=== PATIENT | male | born 1975 | race Caucasian/White ===

== ENCOUNTER → 2023-08-26 | Outpatient (CLI) | payer OTHER, SELFPAY ==
--- NOTE | 2023-08-26 14:55 | VDLE_ITS ---
Reason For Study: LLE Pain RIGHT LEFT CFV is compressible, spontaneous, phasic, GSV is normal. competent and demonstrates normal CFV is compressible, spontaneous, phasic, augmentation. competent, and demonstrates normal Procedure augmentation. This is a venous duplex using B-mode, color FV is compressible, spontaneous, phasic, flow and spectral Doppler. competent and demonstrates normal Exam performed in department. augmentation. The exam was diagnostic. POP V is compressible, spontaneous, phasic, A preliminary report was called and/or faxed competent and demonstrates normal to Violette Craig / Dr. Leos. augmentation. T/P Trunk is compressible. PTV is compressible. LT PerV is compressible. Non vascularized anechoic area noted in Lt gastrocnemius muscle fascia. Possible trauma or injury. VL/Venous Duplex US, Unilateral Interpretation Summary There is no evidence of left lower extremity deep vein thrombosis. Left great s aphenous vein appears patent and compressible segmentally. Small left medial gastrocnemius muscle non vascular structure of undetermined etiology. Clinical correlation would be appropriate. Normal flow values right common femoral vein Ordering Physician: Devin Leos Referring Physician: Kris Washington Performed By: Riley Chris, RVLeonie
== END | disposition home or self-care (01) ==
LOC: CVS 14:52
PROVIDERS: PCP Family Medicine; Referring Provider Student in an Organized Health Care Education/Training Program; Visit Provider Student in an Organized Health Care Education/Training Program
DX: M79.662 Pain in left lower leg (principal)
CPT/HCPCS: 93971